=== PATIENT | male | born 1955 | race Caucasian/White ===

== ENCOUNTER 2022-09-01 14:59 | Outpatient (CLI) | payer MEDICARE, OTHER | END 2022-09-01 15:00 | disposition home or self-care (01) | LOC: BICULT 14:59 | PROVIDERS: ATTEND Family Medicine | DX: R09.89 Other specified symptoms and signs involving the circulatory and respiratory systems (principal); I77.1 Stricture of artery | CPT/HCPCS: 93923 ==

== ENCOUNTER 2022-09-18 11:21 | Outpatient (CLI) | payer MEDICARE, OTHER ==
[~2022-09-18 11:21] MED LIST: Iopamidol 370 76% 100 ML VIAL ONE
== END 2022-09-18 11:22 | disposition home or self-care (01) ==
LOC: CT 11:21
PROVIDERS: ATTEND Thoracic Surgery (Cardiothoracic Vascular Surgery)
DX: I70.212 Atherosclerosis of native arteries of extremities with intermittent claudication, left leg (principal)
CPT/HCPCS: 75635; 82565; Q9967